=== PATIENT | female | born 1990 | race African-American/Black ===

== ENCOUNTER 2017-12-25 11:24 | Outpatient (CLI) | payer OTHER ==
[2017-12-25] MEDS ORDERED: ONDANSETRON 4 MG/2 ML VIAL ONE (11:42)
[2017-12-25] MEDS ORDERED: SODIUM CHLORIDE FLUSH 0.9% 10 ML SYRINGE ONE (11:43)
[2017-12-25] MEDS ORDERED: LACTATED RINGERS 1,000 ML IV ONE (11:43)
[2017-12-25] MEDS ORDERED: ONDANSETRON 4 MG/2 ML VIAL IVP ONE (11:45)
[2017-12-25] MEDS ORDERED: LACTATED RINGERS 1,000 ML IV SCH (12:00)
[2017-12-25 14:06] VITALS: BP 107/62
== END 2017-12-25 14:20 | disposition home or self-care (01) ==
LOC: WFO 11:24 → FBP 11:25 → WFO 14:20
PROVIDERS: ATTEND Nurse Practitioner Obstetrics & Gynecology
DX: O21.2 Late vomiting of pregnancy (principal); Z3A.34 34 weeks gestation of pregnancy
CPT/HCPCS: 96374; 99212; J7120

== ENCOUNTER 2018-01-01 09:27 | Outpatient (CLI) | payer OTHER ==
[2018-01-01 11:10] LABS: HGB - HEMOGLOBIN 11.8 g/dL (12.0-16.0); MEAN CORPUSCULAR HEMOGLOBIN 30.3 pg (27.0-31.0); MEAN CORPUSCULAR HGB CONC 33.8 g/dL (32.0-36.0); MEAN CORPUSCULAR VOLUME 89.8 fL (81.0-99.0); MEAN PLATELET VOLUME 7.2 fL (7.9-10.8); RED BLOOD COUNT 3.89 10^6/uL (4.20-5.40); RED CELL DISTRIBUTION WIDTH 12.2 % (12.0-15.0); WHITE BLOOD COUNT 7.5 x10^3/uL (4.8-10.8)
== END 2018-01-01 09:28 | disposition home or self-care (01) ==
LOC: LAB 09:27
PROVIDERS: ATTEND Nurse Practitioner Obstetrics & Gynecology
DX: Z36.9 Encounter for antenatal screening, unspecified (principal)
CPT/HCPCS: 36415; 82950; 86850

== ENCOUNTER 2018-01-03 11:50 | Outpatient (CLI) | payer OTHER ==
[2018-01-03 12:25] VITALS: BP 111/64
[2018-01-03 12:44] LABS: BILIRUBIN,URINE NEGATIVE (NEGATIVE); GLUCOSE, URINE (UA) 250 mg/dL (NEGATIVE); KETONES,URINE (UA) NEGATIVE (NEGATIVE); LEUKOCYTE ESTERASE, URINE NEGATIVE (NEGATIVE); NITRITE,URINE NEGATIVE (NEGATIVE); OCCULT BLOOD,URINE NEGATIVE (NEGATIVE); PH,URINE 5.5 PH (5.0-7.5); PROTEIN,URINE NEGATIVE (NEGATIVE); UROBILINOGEN,URINE 0.2 (NORMAL) E.U./dL (NORMAL)
[2018-01-03 12:47] LABS: CLARITY,URINE CLEAR (CLEAR)
[2018-01-03 13:07] LABS: BACTERIA,URINE Rare /HPF (None Seen); RBC,URINE None Seen /HPF (0-5); SQUAMOUS EPITHELIAL CELL,UR FEW Squamous (<= Few)
== END 2018-01-03 12:40 | disposition home or self-care (01) ==
LOC: WFO 11:50 → FBP 12:10 → WFO 12:40
PROVIDERS: ATTEND Nurse Practitioner Obstetrics & Gynecology
DX: O47.03 False labor before 37 completed weeks of gestation, third trimester (principal); Z3A.35 35 weeks gestation of pregnancy
CPT/HCPCS: 81001; 87086; 99213

== ENCOUNTER 2018-01-05 08:00 | Outpatient (CLI) | payer OTHER ==
--- NOTE | 2018-01-12 09:06 | PROVIDER PROGRESS NOTE ---
Subjective - Subjective Subjective: S: Patient states she slept moderately well last night. Was up because of menstrual like cramping and abdominal tightening. supportive at the bedside. Reports +FM. O: FHR baseline 140s, moderate variability, + accels, no decels. Contractions palpate moderate infrequently/intermittently. Afebrile. Normotensive. SVE 10/15/- 3, posterior, medium consistency. A: 27yo @ 39.1wks gestation Logistic induction of labor A1GDM P: Attempted placement of patrick finn catheter without success due to patient discomfort and posterior position of the cervix. Will start cervidil VG to leave in place x 12 hours. Will reevaluate in 12 hours and determine further plan of care. Second finn attempt vs cytotec vs pitocin. Pt verbalized understanding and agrees to above plan. Denies further questions or concerns. Repeat SVE in 12 hours or sooner PRN.
== END 2018-01-05 08:01 | disposition home or self-care (01) ==
LOC: LAB.R 08:00
PROVIDERS: ATTEND Nurse Practitioner Obstetrics & Gynecology
DX: Z36.85 Encounter for antenatal screening for Streptococcus B (principal)
CPT/HCPCS: 87081

== ENCOUNTER 2018-01-28 07:25 | Inpatient (IN) | payer OTHER ==
[2018-01-28] MEDS ORDERED: miSOPROStol 100 MCG TABLET VG ONE (07:30)
[2018-01-28] MEDS ORDERED: miSOPROStol 100 MCG TABLET BC ONE (07:30)
[2018-01-28] MEDS ORDERED: SODIUM CHLORIDE FLUSH 0.9% 10 ML SYRINGE IVP PRN (07:30)
[2018-01-28 09:38] LABS: BASOPHILS % (AUTO) 0.3 %; EOSINOPHILS % (AUTO) 0.4 %; HGB - HEMOGLOBIN 11.5 g/dL (12.0-16.0); LYMPHOCYTES # (AUTO) 1.6 10^3/uL (1.5-3.5); LYMPHOCYTES % (AUTO) 19.4 %; MEAN CORPUSCULAR HEMOGLOBIN 29.4 pg (27.0-31.0); MEAN CORPUSCULAR HGB CONC 33.5 g/dL (32.0-36.0); MEAN CORPUSCULAR VOLUME 87.8 fL (81.0-99.0); MEAN PLATELET VOLUME 8.1 fL (7.9-10.8); MONOCYTES # (AUTO) 0.5 10^3/uL (0.0-1.0); MONOCYTES % (AUTO) 6.5 %; NEUTROPHILS # (AUTO) 6.1 10^3/uL (1.5-6.6); NEUTROPHILS % (AUTO) 73.4 %; PLT - PLATELET COUNT 276 10^3/uL (130-450); RED CELL DISTRIBUTION WIDTH 12.5 % (12.0-15.0); WHITE BLOOD COUNT 8.3 x10^3/uL (4.8-10.8)
[2018-01-28] MEDS: SODIUM CHLORIDE FLUSH 0.9% 10 ML SYRINGE IVP SCH ×4 (11:04→20:30)
--- NOTE | 2018-01-28 14:16 | PROVIDER PROGRESS NOTE ---
Subjective - Subjective Subjective: S: Sitting comfortably in the rocking chair. Feeling menstrual-like cramping with contractions. Reports +FM. O: FHR baseline 130s, moderate variability, + accels, no decels. Contractions palpate moderate every 3-11 minutes. Last SVE in office 10/15/-3, posterior, medium. Repeat SVE deferred. A: 27yo @ 39.1 wks gestation GBS neg Non-medical/Logistic induction of labor with cervical ripening P: Patient placed in observation status for cervical ripening. 25mcg BC misprostol x 1, then 4 hours later 50mcg misoprostol BC q 4 hours Continuous monitoring Plan to defer SVE until tomorrow morning unless otherwise indicated. Will order Ambien 5mg PO x 1 tonight at 2200 per patient request. Pt verbalized understanding and agrees to above plan. Denies further questions or concerns at this time. Objective - Vital Signs/Intake & Output Vital Signs: Vital Signs x48h Temp Pulse Resp BP Pulse Ox 01/28/18 10:40 36.7 C 95 17 128/80 98 01/28/18 08:25 36.6 C 99 17 129/82 H 97 - Lab Results Fish Bones: 01/28/18 08:42 Other Labs: Lab Results x24hrs 01/28/18 01/28/18 Range/Units 08:42 08:42 WBC 8.3 (4.8-10.8) x10^3/uL RBC 3.90 L (4.20-5.40) 10^6/uL Hgb 11.5 L (12.0-16.0) g/dL Hct 34.2 L (37.0-47.0) % MCV 87.8 (81.0-99.0) fL MCH 29.4 (27.0-31.0) pg MCHC 33.5 (32.0-36.0) g/dL RDW 12.5 (12.0-15.0) % Plt Count 276 (130-450) 10^3/uL MPV 8.1 (7.9-10.8) fL Neut # 6.1 (1.5-6.6) 10^3/uL Lymph # 1.6 (1.5-3.5) 10^3/uL [place] # 0.5 (0.0-1.0) 10^3/uL Eos # 0.0 (0.0-0.7) 10^3/uL Baso # 0.0 (0.0-0.1) 10^3/uL Absolute Nucleated RBC 0.00 x10^3/uL Nucleated RBC % 0.0 /100WBC Blood Type A POSITIVE Antibody Screen NEGATIVE
[2018-01-28] MEDS: miSOPROStol 100 MCG TABLET BC SCH ×3 (15:25→21:09)
--- NOTE | 2018-01-28 21:46 | PROVIDER PROGRESS NOTE ---
Subjective - Subjective Subjective: S: Laying comfortably in bed. Feels she will be able to sleep well tonight without Ambien. Continues to feel menstrual-like cramping with contractions intermittently. Reports +FM. O: FHR baseline 140s, moderate variability, +accels, no decels. Contraction palpate mild every 3-8 minutes. SVE deferred. BP 115/77, RR 18, T 37.0 A: 27yo @ 39.1wks gestation GBS neg non-medical/logistic induction P: Continue 50mcg BC misprostol q 4 hours Repeat SVE at 0700 on 01/29/2018 unless otherwise indicated Discussed finn bulb placement with patient and will consider at next SVE if little cervical change. Continuous monitoring. Pt verbalized understanding and agrees to above plan. Denies further questions or concerns at this time. Objective - Vital Signs/Intake & Output Vital Signs: Vital Signs x48h Temp Pulse Resp BP Pulse Ox 01/28/18 19:00 36.7 C 85 16 113/74 99 01/28/18 17:19 36.6 C 95 16 125/72 97 01/28/18 14:43 36.9 C 91 17 131/78 H 100 Intake & Output: Intake & Output 01/25/18 01/26/18 01/27/18 01/28/18 23:59 23:59 23:59 23:59 Intake Total 2600 Balance 2600 - Lab Results Fish Bones: 01/28/18 08:42 Other Labs: Lab Results x24hrs 01/28/18 01/28/18 Range/Units 08:42 08:42 WBC 8.3 (4.8-10.8) x10^3/uL RBC 3.90 L (4.20-5.40) 10^6/uL Hgb 11.5 L (12.0-16.0) g/dL Hct 34.2 L (37.0-47.0) % MCV 87.8 (81.0-99.0) fL MCH 29.4 (27.0-31.0) pg MCHC 33.5 (32.0-36.0) g/dL RDW 12.5 (12.0-15.0) % Plt Count 276 (130-450) 10^3/uL MPV 8.1 (7.9-10.8) fL Neut # 6.1 (1.5-6.6) 10^3/uL Lymph # 1.6 (1.5-3.5) 10^3/uL [place] # 0.5 (0.0-1.0) 10^3/uL Eos # 0.0 (0.0-0.7) 10^3/uL Baso # 0.0 (0.0-0.1) 10^3/uL Absolute Nucleated RBC 0.00 x10^3/uL Nucleated RBC % 0.0 /100WBC Blood Type A POSITIVE Antibody Screen NEGATIVE
[2018-01-29] MEDS: miSOPROStol 100 MCG TABLET BC SCH ×5 (01:05→18:04)
--- NOTE | 2018-01-29 08:07 | PROVIDER PROGRESS NOTE ---
Subjective - Subjective Subjective: S: Pt sitting up in rocking chair. She slept mediocre last night due to cramping with contractions. Mood is good. O: BP 129/86, T 36.5, HR 87, RR 16 FHR baseline 140, moderate variability, + accels, no decels. Contractions palpate moderate every 3-8 minutes with soft resting tone. SVE 2/50/-2, vertex, midposition, medium consistency. A: 27yo @ 39.2wks gestation GBS neg Non-medical/logistic induction of labor with cervical ripening Category I tracing P: [place] cervical ripening balloon placed without difficulty. Pt tolerated procedure well. Internal balloon inflated to 50cc, external 20cc. Continue 50mcg misoprostol q 4 hours Anticipate 3-4cm dilitation when balloon falls out and plan pitocin to titrate per protocol. Pt verbalized understanding and agrees to above plan. She denies further questions or concerns at this time. Objective - Vital Signs/Intake & Output Vital Signs: Vital Signs x48h Temp Pulse Resp BP Pulse Ox 01/29/18 05:12 36.5 C 87 16 129/86 H 98 01/29/18 05:00 36.5 C 88 20 129/86 H 98 01/29/18 01:00 36.5 C 93 18 108/70 96 Intake & Output: Intake & Output 01/26/18 01/27/18 01/28/18 01/29/18 23:59 23:59 23:59 23:59 Intake Total 2600 Balance 2600 - Lab Results Fish Bones: 01/28/18 08:42 Other Labs: Lab Results x24hrs 01/28/18 01/28/18 Range/Units 08:42 08:42 WBC 8.3 (4.8-10.8) x10^3/uL RBC 3.90 L (4.20-5.40) 10^6/uL Hgb 11.5 L (12.0-16.0) g/dL Hct 34.2 L (37.0-47.0) % MCV 87.8 (81.0-99.0) fL MCH 29.4 (27.0-31.0) pg MCHC 33.5 (32.0-36.0) g/dL RDW 12.5 (12.0-15.0) % Plt Count 276 (130-450) 10^3/uL MPV 8.1 (7.9-10.8) fL Neut # 6.1 (1.5-6.6) 10^3/uL Lymph # 1.6 (1.5-3.5) 10^3/uL [place] # 0.5 (0.0-1.0) 10^3/uL Eos # 0.0 (0.0-0.7) 10^3/uL Baso # 0.0 (0.0-0.1) 10^3/uL Absolute Nucleated RBC 0.00 x10^3/uL Nucleated RBC % 0.0 /100WBC Blood Type A POSITIVE Antibody Screen NEGATIVE
[2018-01-29] MEDS: SODIUM CHLORIDE FLUSH 0.9% 10 ML SYRINGE IVP SCH ×3 (09:31→18:24)
--- NOTE | 2018-01-29 17:43 | PROVIDER PROGRESS NOTE ---
Labor Progress Note - Uterine Monitoring Uterine Monitoring Mode: positive: External toco Contraction Frequency (min/apart): 3-5 Contraction Intensity: positive: Moderate Uterine Resting Tone: positive: Soft - Monitoring Monitor Mode: positive: External ultrasound Heart Rate Baseline: 140 Heart Rate Variability: positive: Moderate (6-25 bmp) Accelerations: positive: Present, 15x15 Decelerations: positive: None Strip Review: positive: Category I - Vaginal Exam Dilation (in cm): 4 Effacement (%): 75 Station: -2 Cervical Position: Midposition - Labor Progress Note Labor Progress Note/Additional Text: S: Sitting up in rocking chair eating her dinner. She is feeling increasing cramping with contractions. Reports +FM. O: FHR baseline 140's, + accels, no decels. Contractions palpate moderate every 3-5 minutes with soft resting tone. Gentle traction placed on finn bulb and was noted to be inside vaginal vault. Removed without difficulty. SVE 4/75/-2, vertex, midposition, soft. AROM moderate amount of clear fluid. A: 27yo @ 39.2wks gestation Non-medical/logistic induction of labor GBS neg FHT Category I P: Patient admitted to labor and delivery for pitocin induction of labor. Initiate pitocin per protocol. Continuous monitoring. Encouraged ambulation and frequent position changes. Epidural per maternal request. Reevaluate in 4 hours or sooner PRN. Anticipate spontaneous vaginal delivery.
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
[2018-01-29] MEDS ORDERED: OXYTOCIN/SODIUM CHLORIDE 500 ML IV SCH (18:00)
[2018-01-29] MEDS: LACTATED RINGERS 1,000 ML IV SCH (18:24)
--- NOTE | 2018-01-29 21:59 | PROVIDER PROGRESS NOTE ---
Labor Progress Note - Uterine Monitoring Uterine Monitoring Mode: positive: External toco Contraction Frequency (min/apart): 2-4 Contraction Intensity: positive: Strong Uterine Resting Tone: positive: Soft - Monitoring Monitor Mode: positive: External ultrasound Heart Rate Baseline: 140 Heart Rate Variability: positive: Moderate (6-25 bmp) Accelerations: positive: Present, 15x15 Decelerations: positive: None Strip Review: positive: Category I - Vaginal Exam Dilation (in cm): 5 Effacement (%): 90 Station: -1 Cervical Position: Midposition - Labor Progress Note Labor Progress Note/Additional Text: S: Feeling more uncomfortable with contractions. Changing positions from laying in the bed to sitting on the birthing ball. She plans to get in the Jacuzzi prior to getting an epidural. Reports +FM. Coping well with contractions. O: FHR baseline 140s, moderate variability, +accels, no decels. Contractions palpate strong every 2-4 minutes lasting 30-90 seconds with soft resting tone. SVE 5/90/-1, vertex, midposition, soft. Pitocin currently at 2mu/mL A: 27yo @ 39.2wks gestation Non-medical/logistic induction of labor GBS neg AROM x 4.5hrs FHT Category I P: Continue active management with titration of pitocin per protocol Continuous monitoring. Encouraged frequent position changes and ambulation. Epidural per maternal request Anticipate spontaneous vaginal delivery.
[2018-01-30] MEDS: LACTATED RINGERS 1,000 ML IV SCH ×3 (00:06→16:52)
[2018-01-30] MEDS: miSOPROStol 100 MCG TABLET BC SCH (00:07)
[2018-01-30] MEDS ORDERED: fent/BUPIV 2 MCG/0.125% 250 ML EP ONE (00:23)
[2018-01-30] MEDS ORDERED: ePHEDrine 50 MG/ML VIAL IVP PRN (00:55)
[2018-01-30] MEDS ORDERED: diphenhydrAMINE INJ 50 MG/ML VIAL IVP PRN (00:55)
[2018-01-30] MEDS ORDERED: METOCLOPRAMIDE 10 MG/2 ML VIAL IVP PRN (00:55)
[2018-01-30] MEDS ORDERED: NALOXONE 0.4 MG/ML VIAL IVP PRN (00:55)
[2018-01-30] MEDS ORDERED: NALBUPHINE 20 MG/ML AMP IVP PRN (00:55)
[2018-01-30] MEDS ORDERED: LACTATED RINGERS 500 ML IV SCH (00:55)
[2018-01-30] MEDS ORDERED: ONDANSETRON 4 MG/2 ML VIAL IVP PRN (00:55)
[2018-01-30] MEDS ORDERED: ROPIVACAINE 0.5% PF 20 ML AMPULE ONE (01:51)
[2018-01-30] MEDS ORDERED: fentaNYL 100 MCG/2 ML VIAL ONE (06:09)
--- NOTE | 2018-01-30 06:26 | ANESTHESIA PROCEDURE NOTE ---
Anesthesia Epidural Template - Patient Report Patient Reports: positive: Pain controlled - Exam Epidural Medication Information: Epidural Medications Continuous Infusion Rate (mL/ 10 hr) Demand Dose Setting 5 Epidural drip at 12ml/hr with 4ml q 10mins demand dose. Max. 26ml/hr - Other Comments Other Comments: Was called to evaluate epidural after patient reports inadequate pain relief after 2 epidural placements. Unable to obtain a sensory level after 5ml of 2% lidocaine was injected. Discussed risk and benefits of replacing the epidural a third time and patient wishes to proceed with CSE. Patient was placed in a sitting position and her back was prepped with betadine. The L3-L4 interspace was localized with 1% lidocaine and a 17G [place] needle was inserted. MARGOT was obtained at 7cm and a 27G cordelia spinal needle was inserted with return of clear CSF. 20mcg of fentanyl was injected and spinal needle removed. A flex catheter was inserted to 14cm and after negative aspiration, 5ml of 1% lidocaine plus epi test dose was injected with negative results. The catheter was secured and epidural drip was restarted. Patient reports good pain relief with contractions.
--- NOTE | 2018-01-30 07:09 | PROVIDER PROGRESS NOTE ---
Labor Progress Note - Uterine Monitoring Uterine Monitoring Mode: positive: External toco Contraction Frequency (min/apart): 3-4 Contraction Intensity: positive: Strong Uterine Resting Tone: positive: Soft - Monitoring Monitor Mode: positive: External ultrasound Heart Rate Baseline: 130 Heart Rate Variability: positive: Moderate (6-25 bmp) Accelerations: positive: Present, 15x15 Decelerations: positive: None Strip Review: positive: Category I - Vaginal Exam Dilation (in cm): 6 Effacement (%): 90 Station: -1 Cervical Position: Midposition - Labor Progress Note Labor Progress Note/Additional Text: S: Sleeping comfortably with epidural. Slept intermittently throughout the night due to inadequate pain control. She is getting some relief from the third epidural placement with addition of spinal analgesia. Mood is good. O: Febrile. Vitals WNL. Pitocin at 4mU/mL. Last SVE /-1, vertex. SVE deferred at this time. Contractions palpate strong every 3-4 minutes lasting 30- 60 seconds. FHR baseline 130s, moderate variability, + accels, no decels. A: 27yo at 39.3wks gestation by L=11wk U/S Non-medical/logistic induction of labor Active labor with active management of labor AROM x 14 hours GBS neg FHT Category I Epidural in place for pain management P: Continue active management and titration of pitocin per protocol Rotation in bed on peanut ball Continuous monitoring Repeat SVE to ensure cervical change in 2.5 hours or sooner if indicated. Anticipate spontaneous vaginal delivery.
[2018-01-30] MEDS ORDERED: miSOPROStol 200 MCG TABLET ONE (13:37)
[2018-01-30] MEDS ORDERED: LIDOCAINE 1% 50 ML MDV ONE (13:37)
[2018-01-30] MEDS ORDERED: MINERAL OIL LIGHT 10 ML MC ONE (13:38)
[2018-01-30] MEDS ORDERED: WITCH HAZEL/GLYCERIN 1 EACH MED..PAD TOP PRN (14:21)
[2018-01-30] MEDS ORDERED: HYDROCORTISONE/PRAMOXINE 10 GM PR PRN (14:21)
[2018-01-30] MEDS ORDERED: OXYTOCIN/SODIUM CHLORIDE 250 ML IV ONE (14:21)
[2018-01-30] MEDS: IBUPROFEN 800 MG TABLET PO SCH (14:43)
--- NOTE | 2018-01-30 14:47 | DELIVERY NOTE ---
Delivery Note - Labor Labor: positive: Augmented by ARM, Induced by oxytocin - Delivery Method Infant Delivery Method: positive: Spontaneous vaginal delivery - Cervical Ripening Method Cervical Ripening Method: positive: Balloon device, Misoprostil - Presentation Presentation: positive: Vertex, BAM - left occiput anterior - Nuchal Cord Nuchal Cord: positive: None - Amniotic Fluid Description Amniotic Fluid Description: positive: Clear - Episiotomy Type Episiotomy Type: positive: None - Laceration Laceration: positive: Labial - Delivery Outcome Delivery Outcome: positive: Livebirth - [place]: positive: Placed in direct skin contact with mother, Stimulated, [place] used - Cord Cord: positive: 3 vessels - Placenta Placenta: positive: Intact, Spontaneous - Estimated Blood Loss Estimated Blood Loss (in cc): 300 - Post Delivery Events Post Delivery Events: positive: No post delivery events - Delivery Comments (Free Text/Narrative) Delivery Comments (Free Text/Narrative): Labor: This 27 yo @ 39.3 wks gestation presents on 01/28/2018 for non- medical/logistic induction of labor. Cervix was 1/25/-3, vertex, posterior, medium consistency. FHR baseline 140s in a Category I pattern. Cervical ripening with [place] cervical ripening balloon and 50 mcg BC misoprostol q 4 hours. She progressed to 4/80/-2. AROM occurred at 1730 on 01/29/2018 and was noted to be a moderate amount of clear fluid. Total time membranes ruptured - 19 hours and patient remained afebrile. Pitocin was then initiated and titrated per protocol with maximum dosage 12mU/mL. Epidural per maternal request. Normal labor course. Patient progressed to c/c/+1 at 1350 and began pushing at 1358. : Normal SVB of a viable male named Saw. Following of head in BAM position with left shoulder anterior. Laura maneuver was used to easily deliver the 's shoulders in less than 30 seconds. No nuchal cord. 's were 9 and 9 at 1 and 5 minutes respectively on 01/30/2018 @ 1407. The was placed on maternal abdomen, stimulated, dried, and placed skin to skin. The umbilical cord was allowed to stop pulsating at which time it was doubly clamped and cut by nursing assoc present for delivery. Cord blood was obtained. Placenta delivered spontaneously and intact at 1411. 3VC. Pitocin administered via IV for hemostasis. EBL 300mL. Fourth Stage: Uterine fundus firm and there is no excessive bleeding. The perineum, vagina, and cervix were inspected and found to be intact, with minor bilateral labial lacerations which were hemostatic and left unrepaired. Tissues well approximated. Mom and baby skin to skin and both mother and baby were left in stable condition.
[2018-01-30] MEDS: ACETAMINOPHEN 500 MG TABLET PO SCH (15:00)
[2018-01-30] MEDS: SODIUM CHLORIDE FLUSH 0.9% 10 ML SYRINGE IVP SCH ×2 (16:51→18:21)
[2018-01-30] MEDS: DOCUSATE SODIUM 100 MG CAPSULE PO SCH (21:05)
[2018-01-31] MEDS: ACETAMINOPHEN 500 MG TABLET PO SCH ×3 (03:28→16:54)
[2018-01-31] MEDS: SODIUM CHLORIDE FLUSH 0.9% 10 ML SYRINGE IVP SCH (03:28)
[2018-01-31] MEDS: IBUPROFEN 800 MG TABLET PO SCH ×5 (03:28→19:35)
--- NOTE | 2018-01-31 08:15 | PROVIDER PROGRESS NOTE ---
Subjective - Subjective Subjective: S: Bonding well with baby. without difficulty. Baby somewhat favoring the right breast. Able to latch easily on the left with some assistance. She feels that is comfortable and denies pain. Pain well controlled with ibuprofen. Some lower back discomfort at the epidural site but overall doing well. Bleeding light. O: BP 118/74, T 36.5, HR 79, RR 16. Hgb 11.5 on admit. Heart RRR w/o M/G/R. Lungs CTAB. Abdomen soft and nontender with fundus firm at U-2. Light lochia rubra. Bilateral LE's no edema. A: 27yo -->P1 s/p TSVD of viable male P: Continue routine pp care and meds. Plan discharge home tomorrow. Social work consult today. Objective - Vital Signs/Intake & Output Vital Signs: Vital Signs x48h Temp Pulse Resp BP 01/31/18 02:45 36.5 C 79 16 118/74 Intake & Output: Intake & Output 01/28/18 01/29/18 01/30/18 01/31/18 23:59 23:59 23:59 23:59 Intake Total 2600 1500 3003.966 Output Total 2950 Balance 2600 1500 53.966 - Lab Results Fish Bones: 01/28/18 08:42
[2018-01-31] MEDS: DOCUSATE SODIUM 100 MG CAPSULE PO SCH ×2 (08:38→20:07)
--- NOTE | 2018-01-31 10:56 | ANESTHESIA POST OP EVALUATION ---
Anesthesia Post Eval - Post Anesthesia Eval CV Function Including HR & BP: positive: Stable Pain Control: positive: Adequate Nausea & Vomiting: positive: Negative Mental Status: positive: Appropriate Anesthesia Complications: positive: None (Pt resting comfortably in bed after 01/30/18@1407. Mom-in-law at bedside holding baby. Pt states epidural covered pain adequately during delivery. 10/31 pain to low back at epidural site. Pain is better than yesterday in same location. Denies any furhter needs and is anticipating discharge tomorrow AM.)
[2018-02-01] MEDS: ACETAMINOPHEN 500 MG TABLET PO SCH ×2 (04:57→10:03)
[2018-02-01] MEDS: IBUPROFEN 800 MG TABLET PO SCH ×2 (04:57→10:03)
--- NOTE | 2018-02-01 08:41 | Discharge Plan ---
Discharge Plan Disposition: 01 Home, Self Care Condition: Good Diet: Regular Activity Restrictions: No Restrictions Shower Restrictions: No Driving Restrictions: No Weight Bearing: Full Weight No Smoking: If you smoke, Please STOP! Call for help. Follow-up with: Indu Dave CNM, ARNP [Provider Admit Priv/Credential] -
--- NOTE | 2018-02-01 08:44 | PROVIDER PROGRESS NOTE ---
Subjective - Subjective Subjective: 02/01/2018, PPD#2, Final Progress Note S: Bonding well with baby. without difficulty. Mother in law at bedside and supportive. Pain well controlled with ibuprofen. Feels more rested. O: T 36.6, BP 114/72. Heart RRR w/o M/G/R, lungs CTAB, abdomen soft and nontender with fundus firm at U-2. Perineum intact. Light lochia rubra. Bilateral LE's no edema. A: 27yo -->P1 PPD#2, s/p TSVD of viable male named Saw [place] P: Discharge home today on PPD#2. Discharge instructions and warning s/sx reviewed at length. Unsure of plan for contraception - possibly Nexplanon. She plans to f/u with myself at [facility] for 1 week visit, for 3 week visit, and then for 8 week annual well woman exam. She verbalized understanding and agrees to above plan. She denies further questions or concerns today. Objective - Vital Signs/Intake & Output Vital Signs: Vital Signs x48h Temp Pulse Resp BP Pulse Ox 02/01/18 04:10 36.6 C 71 18 114/72 99 Intake & Output: Intake & Output 01/29/18 01/30/18 01/31/18 02/01/18 23:59 23:59 23:59 23:59 Intake Total 1500 3003.966 Output Total 2950 Balance 1500 53.966 - Lab Results Fish Bones: 01/28/18 08:42
[2018-02-01 09:32] VITALS: BP 152/79
[2018-02-01] MEDS: DOCUSATE SODIUM 100 MG CAPSULE PO SCH (10:03)
--- NOTE | 2018-02-01 10:45 | Labor Flowsheet ---
Labor Flowsheet Datetime Report Generated by CPN: 02/01/2018 10:45 Datetime: 02/01/2018 09:21 VITAL SIGNS NBP Sys/Patti/Mean (mmHg): 152 : 79 : 95 Pulse: 89 LaborFlag: Labor Datetime: 01/30/2018 15:04 SpO2 (%): 99 Datetime: 01/30/2018 14:07 UTERINE ACTIVITY Monitor Mode: External Quality: Strong Pattern: Normal: <= 5 Contractions in 10 Minutes Resting Tone (Palpate): Relaxed Contraction Comments: Poor tracing while pushing; pushing began at 1358 ASSESSMENT A Monitor Mode: External US FHR Baseline Rate : 135 Variability: Minimal - Undetectable to <=5 bpm Accelerations: None Decelerations: None Category: Category I Comments: Poor tracing due to maternal positioning during pushing Oxygen Method: Room Air Datetime: 01/30/2018 14:00 COMMUNICATION Communication: Provider at Bedside Provider Notified (Name): Indu Jolie, CNM, MAIL MESSENGER CONTRACTOR Datetime: 01/30/2018 13:50 VAGINAL EXAM Dilatation (cm): 10.0 Effacement (%): 100 Station: 1 Exam by: Agata Castillo RNC Datetime: 01/30/2018 13:35 Monitor Interventions for FHR: Ultrasound Adjusted Datetime: 01/30/2018 13:30 Monitor Interventions for UA: [place] Adjusted Frequency (min): 2.5-3 Datetime: 01/30/2018 13:15 Duration (sec): 80 Datetime: 01/30/2018 13:14 Hygiene: Oral Care Datetime: 01/30/2018 13:11 Nausea/Vomiting: Present Patient Care Comments: Emesis 350mL Datetime: 01/30/2018 12:28 Vaginal Bleeding: Normal Show Cervix, Consistency: Soft Cervix, Position: Midposition Datetime: 01/30/2018 11:58 Respirations: 19 Temperature (C): 36.6 Anesthesia Level Check: T10- Umbilicus Datetime: 01/30/2018 11:57 MEDICATIONS Pitocin (milliunits): Increased to @ 12 Datetime: 01/30/2018 11:55 Patient Position/Activity: High Fowlers I/O Interventions: Clear Liquids Given Datetime: 01/30/2018 11:21 Vaginal Exam Comments: Patient felt sensation of needing to have a BM Datetime: 01/30/2018 09:50 PATIENT CARE IV/Blood Work: New IV Bag Hung Datetime: 01/30/2018 09:32 Pain Coping: Sleeping Datetime: 01/30/2018 09:10 Communication Comments: Checked in to monitor effectiveness of epidural Datetime: 01/30/2018 08:02 MATERNAL ASSESSMENT Level of Consciousness: Fully Conscious Headache: Denies Breath Sounds, Left: Clear and Equal Breath Sounds, Right: Clear and Equal RUQ Epigastric Pain: Denies Datetime: 01/30/2018 07:40 Strip Reviewed by: A Jolie, CNM, MAIL MESSENGER CONTRACTOR Datetime: 01/30/2018 06:22 PAIN Pain Scale: 0 Pain Presence: None/Denies Pain Relief Measures: Epidural Given Datetime: 01/30/2018 06:10 Epidural Procedure: Loading Dose Datetime: 01/30/2018 06:05 Anesthesia Comments: intrathecal dose Datetime: 01/30/2018 05:54 Notification Reason: Pain Datetime: 01/30/2018 05:38 Epidural Procedure Other: Redose Datetime: 01/30/2018 05:30 TEACHING Instructional Method: Verbal Plan of Care: Plan of Care Discussed Pain Management: Epidural; Pain Scale/Goals Datetime: 01/30/2018 04:34 Pain Type: Contraction Pain Location: Abdomen Pain Goal: 10 Datetime: 01/30/2018 03:00 Actions for Decelerations: Side to Side Datetime: 01/30/2018 02:15 Epidural Positioning: Sitting Datetime: 01/30/2018 01:01 Pain Assessment Comments: grimacing through ctxs Datetime: 01/30/2018 00:21 Anesthesia Interview: I Datetime: 01/30/2018 00:15 Related: Hydration; Activity and Rest Datetime: 01/29/2018 23:51 ANESTHESIA Anesthesia Plans: Epidural Datetime: 01/29/2018 21:51 Stage of : Labor Provider Reviewed Strip: Yes Datetime: 01/29/2018 20:21 Comfort Measures: Breathing/Relaxation Datetime: 01/29/2018 19:22 Amniotic Fluid Color: Clear Amniotic Fluid Odor: Normal DTR's/Clonus: DTRs 2+; No Clonus Labor/Induction: Labor Stages Medications: Pitocin Datetime: 01/29/2018 18:29 Pitocin Checklist: At Least 1 Acceleration of 15 bpm x 15 Seconds in 30 Minutes or Adequate Variabi lity; No More than 1 Late Deceleration Occurred in Past 30 Minutes; No More than 2 Variable Decelerat ions > 60 Seconds in Duration and decreasing >60 bpm in 30 minutes; No More than 5 Uterine Contractio ns in 10 Minutes for any 20 Minute Interval; Uterus Palpates Soft between Contractions FHR Baseline Changes: No Baseline Change Datetime: 01/29/2018 05:14 Cervical Ripening Agents: Cytotec @ Datetime: 01/28/2018 21:06 Teaching Comments: Baby folder given pt instructed to review at anytime/ certificate info rev iewed Datetime: 01/28/2018 21:00 Resting Tone IUP (mmHg): Datetime: 01/28/2018 20:10 Membrane Status: Intact Datetime: 01/28/2018 19:30 Temperature Route: Oral Unit Routine: Monitoring; Safety/Fall Risk Prevention; Bathroom Privileges
--- NOTE | 2018-02-05 13:09 | DISCHARGE SUMMARY ---
Physician: WICHO Vazquez DATE OF ADMISSION: 01/29/2018 DATE OF DISCHARGE: 02/01/2018 DIAGNOSES ON ADMISSION: 1. A 26-year-old G1, P0 at 39.2 weeks gestation. 2. Logistic induction of labor. 3. GBS negative. DIAGNOSES ON DISCHARGE: 1. A 26-year-old G1, P1-0-0-1, status post spontaneous vaginal delivery on 01/30/2018. 2. Normal recovery. HISTORY OF PRESENT ILLNESS: She is a patient of [facility] who presented on 01/28/2018 for nonmedical logistics induction of labor. Cervix was 1, 25, -3 vertex posterior, medium consistency. Cervical ripening with [place] cervical ripening balloon and 50 mcg buccal misoprostol q. 4 hours. She progressed to 4, 80, -2, vertex, and was AROM'ed at 1730 on 01/29/2018. Total time membranes were ruptured is 19 hours and the patient remained afebrile. Pitocin was then initiated and titrated per protocol with maximum dose of 12 milliunits per mL. Epidural per maternal request. Normal labor course. She delivered a viable male named Saw on 01/30/2018 at 1407. Apgars were 9 and 9 at 1 and 5 minutes respectively. EBL 300 mL. The perineum, vagina and cervix were inspected and found to be intact with minor bilateral labial lacerations, which were hemostatic and left unrepaired. Tissues are well approximated. She has been doing well in her course. She is ambulating and tolerating a regular diet. She is urinating without difficulty. Her lochia was normal. Her pain is well controlled with oral medications. She will be discharged home today on day #1. She intends to followup with myself at [facility] in 1 week for a visit and then 2 weeks for routine visit. She has been given precautions to call if she has any worsening fevers, chills, abdominal pain, increased bleeding or foul smelling vaginal lochia. TD: 02/05/2018 11:57
== END 2018-02-01 09:35 | disposition home or self-care (01) | DRG 775 ==
LOC: WFO 07:25 → FBP 07:27 → WFO 07:29 → FBP 07:30 → OBSVTOIN 01-29 17:34
PROVIDERS: ADMIT Nurse Practitioner Obstetrics & Gynecology; ATTEND Nurse Practitioner Obstetrics & Gynecology
PROC: 10907ZC Drainage of Amniotic Fluid, Therapeutic from Products of Conception, Via Natural or Artificial Opening (ICD-10-PCS; 2018-01-29)
PROC: 0U7C7ZZ Dilation of Cervix, Via Natural or Artificial Opening (ICD-10-PCS; 2018-01-29)
PROC: 10E0XZZ Delivery of Products of Conception, External Approach (ICD-10-PCS; principal; 2018-01-30)
DX: O70.0 First degree perineal laceration during delivery (principal); Z3A.39 39 weeks gestation of pregnancy; Z37.0 Single live birth
CPT/HCPCS: 36415; 59200; 85025; 86850; 86900; 86901

== ENCOUNTER 2018-05-23 23:28 | Emergency (ER) | payer OTHER ==
--- NOTE | 2018-05-24 01:15 | ED Physician Documentation ---
PD HPI MHE - Stated complaint Stated Complaint: DEPRESSION - Chief complaint Chief Complaint: MHE - History obtained from History obtained from: Patient - History of Present Illness Primary symptom: Depression Timing - onset: How many weeks ago (6) Similar symptoms before: Diagnosis (PTSD, post- depression) - Additional information Additional information: patient says she has been feeling depressed for approximately 6 weeks, with increasingly frequent bouts of uncontrollable crying. She contacted an advice helpline [facility] and became frustrated with the call and thus hung up during the conversation. She took four tablets of her zoloft tonight (she says it is prescribed to be taken 1 tablet per day in the morning); she says she took this because she was crying and feeling depressed and that she thought it would make her sleep and improve her mood; she strongly denies taking this as a means of self-harm. She denies suicidal intent, denies AH/VH. [place] police arrived at her house, apparently having been contacted by the helpline that patient had been speaking with. Patient says she was admitted to [facility] for depression for 3 days, approximately 2 months ago Review of Systems Cardiac: reports: Reviewed and negative Respiratory: reports: Reviewed and negative GI: reports: Reviewed and negative Neurologic: reports: Reviewed and negative Psychiatric: reports: Depressed. denies: Suicidal, Homicidal, Hallucinations, Delusions, Anxiety PD PAST MEDICAL HISTORY - Past Medical History Other Past Medical History: PTSD, post- depression - Past Surgical History Past Surgical History: No - Allergies Allergies/Adverse Reactions: Allergies Allergy/AdvReac Type Severity Reaction Status Date / Time No Known Drug Allergies Allergy Verified 01/28/18 13:35 - Social History Smoking Status: Never smoker PD ED PE NORMAL - Vitals Vital signs reviewed: Yes - General General: Alert and oriented X 3, No acute distress, Well developed/nourished - HEENT HEENT: PERRL, EOMI - Cardiac Cardiac: RRR, No murmur - Respiratory Respiratory: No respiratory distress, Clear bilaterally - Abdomen Abdomen: Soft, Non tender - Neuro Neuro: Alert and oriented X 3, armature rewinder 2-12 intact, No motor deficit, No sensory deficit, Normal speech Eye Opening: Spontaneous Motor: Obeys Commands Verbal: Oriented GCS Score: 15 - Psych Psych: Normal mood, Normal affect Results - Vitals Vitals: Oxygen O2 Source Room air PD MEDICAL DECISION MAKING - ED course Complexity details: re-evaluated patient, considered differential, d/w patient ED course: Patient says she feels safe going home and requests discharge home. She admits to feelings of depression and crying spells, but strongly denies suicidal intent. I offered adoption social worker consult in the AM but she declines. 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
[2018-05-24 04:49] VITALS: BP 118/71
== END 2018-05-24 04:49 | disposition home or self-care (01) ==
LOC: EDUNIT# → ED 23:28
DX: F53 Mental and behavioral disorders associated with the puerperium, not elsewhere classified (principal)
CPT/HCPCS: 99283

== ENCOUNTER 2018-12-23 09:19 | Outpatient (CLI) | payer OTHER ==
--- NOTE | 2018-12-23 17:29 | MRI Report ---
Reason: LOW BACK PAIN, PARESTHESIA OF SKIN Procedure Date: 12/23/2018 Accession Number: [id number] / [id number] Procedure: MRI - Lumbar Spine W/O CPT Code: FULL RESULT: EXAM: MRI LUMBAR SPINE WITHOUT CONTRAST EXAM DATE: 12/23/2018 10:22 AM. CLINICAL HISTORY: LOW BACK PAIN, PARESTHESIA OF SKIN. COMPARISON: None. TECHNIQUE: Multiplanar, multisequence T1-weighted and fluid-sensitive sequences of the lumbar spine from T12 to S1 without contrast. Other: None. FINDINGS: Spinal Canal: The conus terminates at L1. The conus medullaris and cauda equina are unremarkable. Alignment: No scoliosis or spondylolisthesis. Bone Marrow: Five acp-ipo-bolalxy lumbar vertebral bodies are assumed. No gross fractures or bone lesions. No bone marrow replacement. Disk Levels/Facets: T12-L1: Unremarkable. L1-L2: Unremarkable. L2-L3: Unremarkable. L3-L4: Unremarkable. L4-L5: Unremarkable. L5-S1: Hypoplastic disk interspace. Musculature: Normal. No edema or fatty atrophy. Other: The partially visualized retroperitoneum is unremarkable. IMPRESSION: Unremarkable lumbar spine MRI. Comment: The following findings are so common in adults without low back pain that while we report their presence, they must be interpreted with caution and in the context of the clinical situation. (Reference Jarvik et al, Spine 2001) Prevalence of findings in patients without low back pain: Disk degeneration (any evidence): 92% Disk desiccation/T2 signal loss: 83% Disk height loss: 56% Disk bulge: 64% Disk protrusion: 32% Annular tear/high intensity zone: 38% RADIA
== END 2018-12-23 09:20 | disposition home or self-care (01) ==
LOC: DI 09:19
PROVIDERS: ATTEND Student in an Organized Health Care Education/Training Program
DX: M54.5 Low back pain (principal); R20.2 Paresthesia of skin
CPT/HCPCS: 72148

== ENCOUNTER 2019-01-06 12:43 | Emergency (ER) | payer OTHER ==
--- NOTE | 2019-01-06 13:51 | XRAY Report ---
Reason: chest pain and dyspnea Procedure Date: 01/06/2019 Accession Number: [id number] / [id number] Procedure: XR - Chest 2 View X-Ray CPT Code: 28365 FULL RESULT: EXAM: CHEST RADIOGRAPHY EXAM DATE: 01/06/2019 01:41 PM. CLINICAL HISTORY: Chest pain and dyspnea. COMPARISON: None. TECHNIQUE: 2 views. FINDINGS: Lungs/Pleura: No focal opacities evident. No pleural effusion. No pneumothorax. Normal volumes. Mediastinum: Heart and mediastinal contours are unremarkable. Other: None. IMPRESSION: No radiographic evidence for acute cardiopulmonary process. RADIA
[2019-01-06 14:30] VITALS: BP 136/82
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
== END 2019-01-06 16:15 | disposition home or self-care (01) ==
LOC: ED 12:43
DX: F41.9 Anxiety disorder, unspecified (principal); R07.89 Other chest pain; F43.10 Post-traumatic stress disorder, unspecified; Z91.410 Personal history of adult physical and sexual abuse
CPT/HCPCS: 71046; 93005; 99282; 99283

== ENCOUNTER 2019-01-27 06:45 | Emergency (ER) | payer OTHER ==
--- NOTE | 2019-01-27 07:34 | ED Physician Documentation ---
PD HPI NVD - Stated complaint Stated Complaint: V/D - Chief complaint Chief Complaint: Abd Pain - History obtained from History obtained from: Patient - History of Present Illness Timing - onset: Enter time (399), Today Timing - duration: Hours Timing - details: Abrupt onset, Still present Contributing factors: No: Sick contact Improved by: Other (nothing) Worsened by: Other (nothing) Similar symptoms before: Has not had sx before Recently seen: Not recently seen - Additonal information Additional information: 28-year-old female was awakened by her crying son at 4 AM this morning when she awoke she had a headache in the right frontal area and she became nauseous she had diarrhea and then developed vomiting as well. She is had multiple episodes of diarrhea with loose stool and continues to have nausea and a headache. She has not had migraine headaches previously she does have a family history of migraine in her mother. The patient does not recall seeing any type of aura prior to the onset of her headache. She states that her son has otitis and awoke her this morning crying. Review of Systems Constitutional: denies: Fever, Chills, Myalgias Eyes: denies: Decreased vision Ears: denies: Ear pain Nose: denies: Rhinorrhea / runny nose, Congestion Throat: denies: Sore throat Cardiac: denies: Chest pain / pressure, Palpitations Respiratory: denies: Dyspnea, Cough GI: reports: Nausea, Vomiting, Diarrhea. denies: Abdominal Pain : denies: Dysuria, Frequency Skin: denies: Rash Musculoskeletal: denies: Neck pain, Back pain, Extremity pain Neurologic: reports: Headache. denies: Generalized weakness, Focal weakness, Numbness, Difficulty speaking, Confused, Head injury, LOC PD PAST MEDICAL HISTORY - Past Medical History Past Medical History: Yes Cardiovascular: None Respiratory: None Neuro: None Endocrine/Autoimmune: None GI: None AUTOMATIC MACHINES SUPERVISOR: None : None HEENT: None Psych: Depression, Post traumatic stress disorder Musculoskeletal: None Derm: None - Past Surgical History Past Surgical History: No - Present Medications Home Medications: Ambulatory Orders Medication Instructions Recorded Confirmed Lorazepam [Ativan] 1 mg PO DAILY PRN 01/06/19 01/06/19 Mirtazapine 0 mg PO DAILY 01/06/19 01/06/19 Sertraline HCl [Zoloft] 100 mg PO DAILY 01/06/19 01/06/19 - Allergies Allergies/Adverse Reactions: Allergies Allergy/AdvReac Type Severity Reaction Status Date / Time No Known Drug Allergies Allergy Verified 01/27/19 06:52 - Social History Does the pt smoke?: No Smoking Status: Never smoker Does the pt drink ETOH?: No Does the pt have substance abuse?: No - Immunizations Immunizations are current?: Yes - POLST Patient has POLST: No PD ED PE NORMAL - Vitals Vital signs reviewed: Yes (normal ) - General General: Alert and oriented X 3, No acute distress, Well developed/nourished - HEENT HEENT: Atraumatic, PERRL, EOMI, Ears normal, Moist mucous membranes, Pharynx benign - Neck Neck: Supple, no meningeal sign, No bony TTP - Cardiac Cardiac: RRR, No murmur - Respiratory Respiratory: No respiratory distress, Clear bilaterally - Abdomen Abdomen: Soft, Non tender - Back Back: No CVA TTP, No spinal TTP - Derm Derm: Normal color, Warm and dry, No rash - Extremities Extremities: No deformity, No edema - Neuro Neuro: Alert and oriented X 3, investor relations manager 2-12 intact, No motor deficit, No sensory deficit, Normal speech Eye Opening: Spontaneous Motor: Obeys Commands Verbal: Oriented GCS Score: 15 - Psych Psych: Normal mood, Normal affect Results - Vitals Vitals: Vital Signs - 24 hr 01/27/19 01/27/19 06:51 08:31 Temperature 36.5 C Heart Rate 68 60 Respiratory 17 13 Rate Blood Pressure 126/77 126/86 H O2 Saturation 99 100 Oxygen O2 Source Room air - Labs Labs: Laboratory Tests 01/27/19 01/27/19 01/27/19 09:12 09:12 09:31 WBC 4.8 RBC 4.27 Hgb 12.5 Hct 38.4 MCV 89.9 MCH 29.3 MCHC 32.6 RDW 12.6 Plt Count 319 MPV 7.2 L Neut # (Auto) 2.7 Lymph # (Auto) 1.7 [place] # (Auto) 0.3 Eos # (Auto) 0.0 Baso # (Auto) 0.0 Absolute Nucleated RBC 0.00 Nucleated RBC % 0.1 Sodium 141 Potassium 4.0 Chloride 105 Carbon Dioxide 27 Anion Gap 9.0 BUN 12 Creatinine 0.8 Estimated GFR (MDRD) 104 Glucose 95 Calcium 8.9 Total Bilirubin 0.6 AST 17 ALT 16 Alkaline Phosphatase 48 Total Protein 7.5 Albumin 3.7 Globulin 3.8 Albumin/Globulin Ratio 1.0 Lipase 26 Urine Color YELLOW Urine Clarity CLEAR Urine pH 7.5 Ur Specific [place] 1.010 Urine Protein NEGATIVE Urine Glucose (UA) NEGATIVE Urine Ketones NEGATIVE Urine Occult Blood NEGATIVE Urine Nitrite NEGATIVE Urine Bilirubin NEGATIVE Urine Urobilinogen 0.2 (NORMAL) Ur Leukocyte Esterase NEGATIVE Ur Microscopic Review NOT INDICATED Urine Culture Comments NOT INDICATED Urine HCG, Qual NEGATIVE Procedures - IVC sono (time) 0710 Bedside IVC sono: IVC measures (cm) (1.54), Euvolemia PD MEDICAL DECISION MAKING - ED course Complexity details: reviewed old records, reviewed results, re-evaluated patient, considered differential, d/w patient ED course: 28-year-old female with history of anxiety and depression with PTSD was awoken early this morning by crying child and at that point she had developed a right hemicranial headache. She developed some diarrhea associated with this as well as some nausea and vomiting she is come in now for treatment. She does not have prior history of migraine headache she does have family history. She states that no one else in the family is ill they will have the same spaghetti dinner last night and I am concerned about this being a presentation for migraine headache. The patient is treated with migraine cocktail including a liter of saline, compazine, benadrly, toradal and decadron. Departure - Departure Disposition: 01 Home, Self Care Clinical Impression: Migraine Qualifiers: Migraine type: without aura Status migrainosus presence: without status migrainosus Intractability: not intractable Qualified Code(s): G43.009 - Migraine without aura, not intractable, without status migrainosus Condition: Stable Instructions: ED Headache Migraine Follow-Up: Mckenzie Gutierrez MD [Primary Care Provider] - Forms: Activity restrictions
[2019-01-27] MEDS ORDERED: PROCHLORPERAZINE 10 MG/2 ML VIAL IVP STA (07:41)
[2019-01-27] MEDS ORDERED: KETOROLAC 30 MG/ML VIAL IVP STA (07:41)
[2019-01-27] MEDS ORDERED: SODIUM CHLORIDE 0.9% 1,000 ML IV ONE (07:41)
[2019-01-27] MEDS ORDERED: diphenhydrAMINE INJ 50 MG/ML VIAL IVP STA (07:42)
[2019-01-27] MEDS ORDERED: DEXAMETHASONE 10 MG/ML VIAL IVP STA (07:42)
[2019-01-27 08:32] VITALS: BP 126/86
[2019-01-27 09:17] LABS: BASOPHILS % (AUTO) 0.5 %; EOSINOPHILS % (AUTO) 0.6 %; HGB - HEMOGLOBIN 12.5 g/dL (12.0-16.0); LYMPHOCYTES # (AUTO) 1.7 10^3/uL (1.5-3.5); LYMPHOCYTES % (AUTO) 36.4 %; MEAN CORPUSCULAR HEMOGLOBIN 29.3 pg (27.0-31.0); MEAN CORPUSCULAR HGB CONC 32.6 g/dL (32.0-36.0); MEAN CORPUSCULAR VOLUME 89.9 fL (81.0-99.0); MEAN PLATELET VOLUME 7.2 fL (7.9-10.8); MONOCYTES # (AUTO) 0.3 10^3/uL (0.0-1.0); MONOCYTES % (AUTO) 6.1 %; NEUTROPHILS # (AUTO) 2.7 10^3/uL (1.5-6.6); NEUTROPHILS % (AUTO) 56.4 %; PLT - PLATELET COUNT 319 10^3/uL (130-450); RED BLOOD COUNT 4.27 10^6/uL (4.20-5.40); RED CELL DISTRIBUTION WIDTH 12.6 % (12.0-15.0); WHITE BLOOD COUNT 4.8 x10^3/uL (4.8-10.8)
[2019-01-27 09:31] LABS: ALBUMIN 3.7 g/dL (3.2-5.5); BILIRUBIN,TOTAL 0.6 mg/dL (0.2-1.0); CALCIUM 8.9 mg/dL (8.5-10.3); CREATININE 0.8 mg/dL (0.4-1.0); TOTAL PROTEIN 7.5 g/dL (6.7-8.2)
[2019-01-27 09:33] LABS: BILIRUBIN,URINE NEGATIVE (NEGATIVE); GLUCOSE, URINE (UA) NEGATIVE (NEGATIVE); KETONES,URINE (UA) NEGATIVE (NEGATIVE); LEUKOCYTE ESTERASE, URINE NEGATIVE (NEGATIVE); NITRITE,URINE NEGATIVE (NEGATIVE); OCCULT BLOOD,URINE NEGATIVE (NEGATIVE); PH,URINE 7.5 PH (5.0-7.5); PROTEIN,URINE NEGATIVE (NEGATIVE); UROBILINOGEN,URINE 0.2 (NORMAL) E.U./dL (NORMAL)
[2019-01-27 09:36] LABS: CLARITY,URINE CLEAR (CLEAR); HCG UR QUAL NEGATIVE
== END 2019-01-27 09:55 | disposition home or self-care (01) ==
LOC: ED 06:45
DX: G43.009 Migraine without aura, not intractable, without status migrainosus (principal); R19.7 Diarrhea, unspecified; R11.2 Nausea with vomiting, unspecified; F32.9 Major depressive disorder, single episode, unspecified; F41.9 Anxiety disorder, unspecified; F43.10 Post-traumatic stress disorder, unspecified; Z82.0 Family history of epilepsy and other diseases of the nervous system
CPT/HCPCS: 36415; 80053; 81003; 81025; 83690; 85025; 96374; 96375; 99283; J1200; 81001; 87086

== ENCOUNTER 2019-03-23 12:58 | Emergency (ER) | payer OTHER ==
--- NOTE | 2019-03-23 13:11 | ED Physician Documentation ---
PD HPI HEADACHE - Stated complaint Stated Complaint: D/V/ MIGRAINE - Chief complaint Chief Complaint: Neuro - History obtained from History obtained from: Patient - History of Present Illness Timing - onset: How many days ago (3) Timing - onset during: Light activity Timing - duration: Days (3) Timing - details: Gradual onset, Still present, Waxing and waning Worst headache ever?: No: Worst headache ever? (She has had a similar headache about 2 months ago with the same characteristics. She is felt okay between times. She had onset of this headache a few days ago and has persisted with light sensitivity and noise sensitivity. She has had some nausea with it. He did increase some last night and she has had a few episodes of vomiting overnight into this morning. She has some occasional visual scotomata on the right eye. The headache is located over the right periorbital area and to the right side of the head. She denies any focal weaknesses. She did not have any fevers or head cold symptoms. She denies any injury.) Location: Front, Right Quality: Throbbing, Aching Associated symptoms: Nausea, Vomiting, Vision changes (some lateral right scotomata at times). No: Fever, Stiff neck, Weakness, Eye pain Improved by: Dark room. No: Rest Worsened by: Light, Noise Contributing factors: No: Anticoagulated, Recent illness, Trauma Similar symptoms before: No diagnosis (presumed migraine about 2 months ago, seen in ER and improved with IV/meds tarrgeted at migraine.) Review of Systems Constitutional: denies: Fever, Chills, Myalgias Eyes: reports: Photophobia. denies: Loss of vision, Decreased vision Nose: denies: Rhinorrhea / runny nose, Congestion, Sinus pressure / pain Throat: denies: Sore throat Respiratory: denies: Cough GI: reports: Nausea, Vomiting. denies: Abdominal Pain, Diarrhea : reports: Frequency, Incontinent (for couple weeks, with coughing or lifting) Skin: denies: Rash, Lesions Neurologic: reports: Headache. 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 : None HEENT: None Psych: Depression, Post traumatic stress disorder Musculoskeletal: None Derm: None - Past Surgical History Past Surgical History: No - Present Medications Home Medications: Ambulatory Orders Medication Instructions Recorded Confirmed Lorazepam [Ativan] 1 mg PO DAILY PRN 01/06/19 01/06/19 Mirtazapine 0 mg PO DAILY 01/06/19 01/06/19 Sertraline HCl [Zoloft] 100 mg PO DAILY 01/06/19 01/06/19 Naproxen 500 mg PO BID #20 tablet 03/23/19 Nitrofurantoin Monohyd/M-Cryst 100 mg PO BID #10 capsule 03/23/19 [Macrobid 100 mg Capsule] Ondansetron Odt [Zofran] 4 mg TL Q6H PRN #10 tablet 03/23/19 Sumatriptan Succinate [Imitrex] 50 mg PO ONCE PRN #5 tablet 03/23/19 - Allergies Allergies/Adverse Reactions: Allergies Allergy/AdvReac Type Severity Reaction Status Date / Time No Known Drug Allergies Allergy Verified 01/27/19 06:52 - Social History Does the pt smoke?: No Smoking Status: Never smoker Does the pt drink ETOH?: No Does the pt have substance abuse?: No - Immunizations Immunizations are current?: Yes - POLST Patient has POLST: No PD ED PE NORMAL - Vitals Vital signs reviewed: Yes - General General: Alert and oriented X 3, No acute distress, Well developed/nourished - HEENT HEENT: PERRL, EOMI (light sensitive), Moist mucous membranes, Pharynx benign - Neck Neck: Supple, no meningeal sign, No adenopathy, No JVD - Cardiac Cardiac: RRR, No murmur - Respiratory Respiratory: Clear bilaterally - Abdomen Abdomen: Normal bowel sounds, Soft, Non tender, Non distended - Female Female : Deferred - Rectal Rectal: Deferred - Back Back: No CVA TTP - Derm Derm: Normal color, Warm and dry - Extremities Extremities: No deformity, No tenderness to palpate - Neuro Neuro: Alert and oriented X 3, No motor deficit, No sensory deficit, Normal speech Results - Vitals Vitals: Vital Signs - 24 hr 03/23/19 13:02 Temperature 36.5 C Heart Rate 78 Respiratory 16 Rate Blood Pressure 138/89 H O2 Saturation 100 Oxygen O2 Source Room air - Labs Labs: Laboratory Tests 03/23/19 13:47 Urine Color YELLOW Urine Clarity CLEAR Urine pH 7.0 Ur Specific [place] 1.010 Urine Protein NEGATIVE Urine Glucose (UA) NEGATIVE Urine Ketones NEGATIVE Urine Occult Blood SMALL H Urine Nitrite NEGATIVE Urine Bilirubin NEGATIVE Urine Urobilinogen 0.2 (NORMAL) Ur Leukocyte Esterase NEGATIVE Urine RBC 0-5 Urine WBC 0-3 Ur Squamous Epith Cells RARE Squamous Urine Bacteria Rare Ur Microscopic Review INDICATED Urine Culture Comments NOT INDICATED Urine HCG, Qual NEGATIVE PD MEDICAL DECISION MAKING - ED course Complexity details: reviewed old records, re-evaluated patient, considered differential (This sounds very migraine like being symptoms and characteristics. We will treated as such. Previous ER visit had IV fluids and "migraine cocktail". She states she did feel sleepy from those and prefers not to have those medications and prefers not IV. She does not seem significantly dehydrated and we can approach it with Toradol Imitrex and Zofran. She is agreeable to that. Benefit would be if it does help her than it can be reproducible by prescription.), d/w patient Departure - Departure Disposition: 01 Home, Self Care Clinical Impression: Dysuria Migraine Qualifiers: Migraine type: unspecified Status migrainosus presence: with status migrainosus Intractability: not intractable Qualified Code(s): G43.901 - Migraine, unspecified, not intractable, with status migrainosus Condition: Stable Record reviewed to determine appropriate education?: Yes Instructions: ED Headache Migraine, ED Dysuria Uncertain Cause Follow-Up: Mckenzie Gutierrez MD [Primary Care Provider] - Prescriptions: Naproxen 500 mg PO BID #20 tablet Nitrofurantoin Monohyd/M-Cryst [Macrobid 100 mg Capsule] 100 mg PO BID #10 capsule Ondansetron Odt [Zofran] 4 mg TL Q6H PRN #10 tablet PRN Reason: Nausea / Vomiting Sumatriptan Succinate [Imitrex] 50 mg PO ONCE PRN #5 tablet PRN Reason: Migraine Comments: The medications here were targeted at migraine and given your considerable improvement in symptoms, it seems safe to say that these are migraine headaches. For recurrent similar headache in the future, try combination of the sumatriptan with naproxen and ondansetron (migraine medicine and anti-inflammatory and nausea medicine). See if those help your headaches in the future. Stay well- hydrated. Your urine test has a suggestion of a mild infection which along with your symptoms will lead us to try an antibiotic for 5 days and see if your symptoms improve.
[2019-03-23] MEDS ORDERED: KETOROLAC 30 MG/ML VIAL IM STA (13:26)
[2019-03-23] MEDS ORDERED: SUMAtriptan 6 MG/0.5 ML VIAL SUBQ STA (13:26)
[2019-03-23] MEDS ORDERED: ONDANSETRON ODT 4 MG TABLET TL STA (13:26)
[2019-03-23 13:50] LABS: BILIRUBIN,URINE NEGATIVE (NEGATIVE); GLUCOSE, URINE (UA) NEGATIVE (NEGATIVE); KETONES,URINE (UA) NEGATIVE (NEGATIVE); LEUKOCYTE ESTERASE, URINE NEGATIVE (NEGATIVE); NITRITE,URINE NEGATIVE (NEGATIVE); OCCULT BLOOD,URINE SMALL (NEGATIVE); PROTEIN,URINE NEGATIVE (NEGATIVE); UROBILINOGEN,URINE 0.2 (NORMAL) E.U./dL (NORMAL)
[2019-03-23 13:52] LABS: CLARITY,URINE CLEAR (CLEAR); HCG UR QUAL NEGATIVE
[2019-03-23 14:01] LABS: BACTERIA,URINE Rare /HPF (None Seen); RBC,URINE 0-5 /HPF (0-5); SQUAMOUS EPITHELIAL CELL,UR RARE Squamous (<= Few)
[2019-03-23 14:34] VITALS: BP 125/87
== END 2019-03-23 14:35 | disposition home or self-care (01) ==
LOC: ED 12:58
DX: G43.901 Migraine, unspecified, not intractable, with status migrainosus (principal); R30.0 Dysuria
CPT/HCPCS: 81001; 81025; 96372; 99283; Q0162; 81003; 87086